=== PATIENT | female | born 2000 | race African-American/Black ===

== ENCOUNTER 2024-05-01 22:37 | Emergency (ER) | payer OTHER, SELFPAY ==
[2024-05-01 23:23] LABS: % Basophils 1.2 % (0-2); % Eosinophils 5.4 % (0-6); % Immature Granulocytes 0.2 % (0-0.5); % Lymphocytes 42.5 % (20.5-51.1); % Monocytes 7.4 % (1.7-9.3); % Neutrophils 43.3 % (42.2-75.2); Absolute Basophils 0.1 10^3/uL (0-0.2); Absolute Eosinophils 0.4 10^3/uL (0-0.7); Absolute Lymphocytes 2.8 10^3/uL (1.2-3.4); Absolute Monocytes 0.5 10^3/uL (0.1-0.6); Absolute Neutrophils 2.9 10^3/uL (1.4-6.5); Hematocrit 34.7 % (37.0-47.0); Hemoglobin 12.4 g/dL (12.0-16.0); Mean Corp Hgb Conc. 35.7 g/dL (33.0-37.0); Mean Corpuscular Hgb 28.1 pg (27.0-31.0); Mean Corpuscular Volume 78.7 fL (81.0-99.0); Nucleated Red Blood Cells % 0 %; Platelet Count 168 10^3/uL (130-400); Red Blood Cell Count 4.41 10^6/uL (4.20-5.40); Red Cell Dist. Width 13.5 % (11.5-14.5); White Blood Cell Count 6.6 10^3/uL (4.8-10.8)
[2024-05-01 23:36] LABS: ALT (SGPT) 12 U/L (0-35); AST (SGOT) 27 U/L (14-36); Alkaline Phosphatase 89 U/L (38-126); Calcium 9.3 mg/dl (8.4-10.2); Carbon Dioxide 19 mmol/L (22-30); Chloride 108 mmol/L (98-107); Glucose 87 mg/dl (70-99); Sodium 141 mmol/L (135-145)
[2024-05-01 23:45] LABS: Blood Urea Nitrogen 11 mg/dl (7-17); Total Bilirubin 0.8 mg/dl (0.2-1.3); Total Protein 8.2 g/dl (6.3-8.2); eGFR > 60.00
[2024-05-01 23:46] LABS: Troponin I 0.024 ng/ml
[2024-05-02 00:15] VITALS: BP 111/75
[2024-05-02 00:57] LABS: D-Dimer 1.52 ug/mlFEU (0.00-0.50)
[2024-05-02 01:10] LABS: Troponin I < 0.012 ng/ml
--- NOTE | 2024-05-02 01:40 | ED.GENMED ---
History of Present Illness
General
Chief Complaint: Chest Pain
Source: patient
Exam Limitations: none
Time Seen by Provider: 05/01/24 23:02
Nursing documentation reviewed up to this point in time: agreed with
Travel History
Have you had any contact with someone who has COVID-19?: No
Do you have any symptoms of coronavirus? Fever > 100 degrees, chills, cough, shortness of breath, sore throat, loss of taste or smell, muscle aches, or headache?: No
History of Present Illness
History of Present Illness:
Patient to ED [facility] complaint of left sided chest pain. States pain has been ongoing for 1 year but today became worse. SHe follows [facility] PCP at [place]. She states she has been scheduled for a cardiology evaluation at [place] this coming week. SHe
states her PCP told her she had mild CAD. SHe states she lost her daughter (age 1) in March and her father in 2021 from heart disease. Brought to ED via EMS for eval. SHe does not have a prior historyof heart failure. Denies fever/chills,
n/v/diaphoresis. Reports feeling SOB at times. No history of DVT.
Past History
Past History
ED Past Medical History: None
ED Past Surgical History: None
Review of Systems
Review of Systems
Allergies reviewed?: Yes
All Other Systems: ROS reviewed and negative except as documented in HPI and ROS
Constitutional: Reports no symptoms
EENT: Reports no symptoms
Respiratory: Reports no symptoms
Cardiac: Reports chest pain
ABD/GI: Reports no symptoms
: Reports no symptoms
Musculoskeletal: Reports no symptoms
Skin: Reports no symptoms
Neurological: Reports no symptoms
Psychiatric: Reports no symptoms
Phy Exam
General Physical Exam
General Presentation: well appearing and no apparent distress
General age: appears stated age
General Skin: warm
General Habitus: normal
General Mental: alert
Cardiovascular Exam
Cardiovascular Exam: regular rate/rhythm and no edema
Pulmonary Exam
Pulmonary Exam: lungs clear and no respiratory distress
Gastrointestinal Exam
Gastrointestinal Exam: normal bowel sounds, non tender and soft
Musculoskeletal Exam
Musculoskeletal Exam: full ROM and neuro vasc intact
Skin Exam
Skin Exam: normal color, warm/dry and no rash
Course
Orders/Labs/Results
Orders:
Orders
05/01/24 22:38
Electrocardiogram (*1) Urgent
Reason for Study: Chest Pain
Cardiac Monitoring- Treatment ONCE
EKG- Treatment ONCE
IV Insert/Care/Rem.- Treatment PRN
O2 Therapy [RESP] Urgent
Titrate/Wean O2 to maintain O2 sat greater than (%): 90
Special Instructions: Maintain sats >/=90%
Pulse Ox/spot Check [RESP] Urgent
Quantity: 1
Special Instructions: ON ROOM AIR
05/01/24 23:14
Complete Blood Count/With Diff Urgent
Comprehensive Metabolic Panel Urgent
HCG, Serum Qualitative Screen Urgent
Troponin I Urgent
05/02/24 00:17
CR Chest - 2 Views Urgent
Comment:
Reason For Exam: chest pain
05/02/24 00:40
D-Dimer Urgent
Troponin I Urgent
05/02/24 01:00
Add On- LAB Urgent
Tests Added?: serum HCG qualitative
CT Chest Pe Study Urgent
Comment:
Reason For Exam: chest pain, elevated ddimer
Abnormal Lab Results
05/01/24 05/02/24
23:14 00:40
Hct 34.7 L %
(37.0-47.0)
MCV 78.7 L fL
(81.0-99.0)
D-Dimer 1.52 H ug/mlFEU
(0.00-0.50)
Chloride 108 H mmol/L
(98-107)
Carbon Dioxide 19 L mmol/L
(22-30)
05/01/24 23:14
05/01/24 23:14
Vital Signs
Initial and Last Documented VS:
Initial Vital Signs
Temp Pulse Resp Pulse Ox
98.8 F 72 20 100
05/01/24 22:38 05/01/24 22:38 05/01/24 22:38 05/01/24 22:38
Last Documented Vital Signs
Temp Pulse Resp BP Pulse Ox
98.8 F 81 16 119/70 99
05/01/24 22:38 05/02/24 01:45 05/02/24 01:45 05/02/24 01:45 05/02/24 01:45
ED Attending Note
-
Portions of this chart may have been created with voice recognition software.� Occasional wrong word or��sound alike� substitutions may have occurred due to the inherent limitations of voice recognition software.
Discharge Plan
Departure
Patient with high blood pressure during this ER visit?: No
Condition: Good
Covid-19: Not Applicable
Discharge Problem:
Chest pain
Instructions: Chest Pain PCP Follow Up
Referrals:
PRIVATE,PHYSICIAN [Family Provider] -
Stand Alone Forms: Return to Work
Activity Restrictions/Additional Instructions:
Follow up with your family doctor on Saturday. Return to the emergency department immediately for any changes in/worsening of your symptoms.
Interventions
Interventions:
*Risk Screen - Suicide Last Done: 05/01/24 22:38
*General Assessment Last Done: 05/01/24 22:38
*Neglect/Abuse Screening Last Done: 05/01/24 22:38
ED- Cardiac Assessment Last Done: 05/01/24 23:45
Discharge Date and Time
Print Language: [place]
[2024-05-02 01:43] VITALS: BP 119/70
[2024-05-02 01:45] VITALS: BP 119/70
[2024-05-02 01:57] LABS: HCG, Serum Qualitative Screen Negative
[2024-05-02 03:12] VITALS: BP 109/66
[2024-05-02 03:56] VITALS: BP 112/72
== END 2024-05-02 04:18 | disposition home or self-care (01) ==
LOC: EMR 22:37
PROVIDERS: Nurse Practitioner; EMERGENCY PHYSICIAN Emergency Medicine
DX: R07.89 Other chest pain (principal)
CPT/HCPCS: 99284; 71046; 71275; 80053; 84484; 84703; 85025; 85379; 93005; Q9967